=== PATIENT | female | born 1950 | race American Indian/Alaskan Native ===

== ENCOUNTER 2021-07-23 12:55 | Emergency (ER) | payer MEDICARE ==
[2021-07-23 15:36] VITALS: BP 151/87
--- NOTE | 2021-07-23 17:25 | Emergency Department Report ---
ED General Adult HPI - General Chief complaint: Tube Replacement Stated complaint: TUBE BLOCKED Time Seen by Provider: 07/23/21 16:55 Source: patient Mode of arrival: Ambulatory Limitations: No Limitations - History of Present Illness Initial comments: Patient is 70 years old female with history of chronic G-tube for feeding. Patient presented to the ER accompanied by her daughter stating that her G-tube has been blocked today. She stated that she flushes several times with no help. G-tube was placed 3 months ago. Patient denied any other complaint. - Related Data Allergies Allergy/AdvReac Type Severity Reaction Status Date / Time No Known Allergies Allergy Verified 07/23/21 15:33 ED Review of Systems ROS: Stated complaint: TUBE BLOCKED Other details as noted in HPI Comment: All other systems reviewed and negative Constitutional: denies: chills, fever Respiratory: denies: cough, shortness of breath, SOB with exertion Cardiovascular: denies: chest pain, palpitations Gastrointestinal: denies: abdominal pain, nausea, vomiting Musculoskeletal: denies: back pain Neurological: denies: headache, weakness, numbness, paresthesias, confusion ED Past Medical Hx - Social History Smoking Status: Never Smoker Substance Use Type: None ED Physical Exam - General Limitations: No Limitations General appearance: alert, in no apparent distress - Head Head exam: Present: atraumatic, normocephalic, normal inspection - Eye Eye exam: Present: normal appearance - ENT ENT exam: Present: normal exam, normal orophraynx, mucous membranes moist - Neck Neck exam: Present: normal inspection, full ROM. Absent: tenderness, meningismus - Respiratory Respiratory exam: Present: normal lung sounds bilaterally - Cardiovascular Cardiovascular Exam: Present: regular rate, normal rhythm, normal heart sounds - GI/Abdominal GI/Abdominal exam: Present: soft. Absent: distended, tenderness, guarding, rebound, rigid - Extremities Exam Extremities exam: Present: normal inspection - Neurological Exam Neurological exam: Present: alert, oriented X3, CN II-XII intact, normal gait ED Course Vital Signs 07/23/21 15:33 Pulse Rate 85 Respiratory 16 Rate Blood Pressure 151/87 O2 Sat by Pulse 95 Oximetry ED Medical Decision Making - Radiology Data Radiology results: report reviewed - Medical Decision Making Patient is 70 years old female with history of chronic G-tube for feeding. Patient presented to the ER accompanied by her daughter stating that her G-tube has been blocked today. She stated that she flushes several times with no help. G-tube was placed 3 months ago. Patient denied any other complaint. G-tube placed, [address] with no difficulty. Gastrografin study Critical care attestation.: If time is entered above; I have spent that time in minutes in the direct care of this critically ill patient, excluding procedure time. ED Disposition Clinical Impression: Gastrostomy tube dysfunction Disposition: HOME / SELF CARE / HOMELESS Is pt being admited?: No Condition: Stable Instructions: Gastrostomy Tube Replacement Referrals: PRIMARY CARE, [Primary Care Provider] - 3-5 Days
--- NOTE | 2021-07-23 18:51 | XRay Report ---
ABDOMEN 4 VIEW(S) INDICATION / CLINICAL INFORMATION: G-tube replacement. COMPARISON: None available. FINDINGS: TUBES / LINES: PEG tube has tip in stomach confirmed with intraluminal contrast injection with contra st noted in stomach and proximal small bowel. BOWEL GAS PATTERN: No significant abnormality. FREE AIR / EXTRALUMINAL GAS: None seen. ADDITIONAL FINDINGS: No significant additional findings. IMPRESSION: 1. Intraluminal G-tube Signer Name: James Davila MD Signed: 07/23/2021 6:47 PM Workstation Name: [id number]
== END 2021-07-23 18:55 | disposition home or self-care (01) ==
LOC: ED 12:55
DX: K94.23 Gastrostomy malfunction (principal); Y83.8 Other surgical procedures as the cause of abnormal reaction of the patient, or of later complication, without mention of misadventure at the time of the procedure
CPT/HCPCS: 43762; 74018; 99283; Q9967